=== PATIENT | male | born 1935 | race Caucasian/White ===

== ENCOUNTER 2022-12-21 01:12 | Inpatient (IN) ==
[2022-12-21 01:38] LABS: Hematocrit 31 % (42-52); Hemoglobin 10.1 g/dL (14.0-18.0); Mean Corpuscular HGB Conc 33 g/dL (31-36); Mean Corpuscular Hemoglobin 31 pg (27-31); Mean Corpuscular Volume 95 fL (80-94); Mean Platelet Volume 7.8 fL (7.4-10.4); Platelet Count 126 10^3/uL (150-450); Red Blood Count 3.24 10^6 /uL (4.18-5.48); Red Cell Distribution Width 17 % (10-15); White Blood Count 46.3 10^3/uL (3.5-10.8)
[2022-12-21 01:56] LABS: INR 1.24 (0.88-1.18)
[2022-12-21 02:28] LABS: Albumin 4.2 g/dL (3.2-5.2); Albumin/Globulin Ratio 2.3 (1-3); Calcium 9.2 mg/dL (8.6-10.3); Creatinine, Serum 1.19 mg/dL (0.67-1.17); Globulin 1.8 g/dL (2-4); Potassium 3.9 mmol/L (3.5-5.0); Total Bilirubin 0.9 mg/dL (0.2-1.0); eGFR CKD-EPI 60.2 (>60)
[2022-12-21] MEDS ORDERED: NS 0.9% 1000 ml BAG 1,000 ML IV ONE ×2 (02:30→06:46)
[2022-12-21 02:45] LABS: ABS Basophils 0.2 10^3/ul (0-0.2); ABS Eosinophils 0.2 10^3/ul (0-0.6); ABS Lymphocytes 0.2 10^3/ul (1.0-4.8); ABS Monocytes 1.1 10^3/ul (0-0.8); ABS Neutrophils 44.6 10^3/ul (1.5-7.7); Eosinophil % 0.5 %; Lymphocyte % 0.3 %
[2022-12-21 03:18] LABS: Urine Appearance Clear; Urine Bilirubin Negative (Negative); Urine Blood Negative (Negative); Urine Color Yellow; Urine Glucose Negative (Negative); Urine Ketones Negative (Negative); Urine Nitrite Negative (Negative); Urine Protein 1+(30 mg/dL) (Negative); Urine Specific Gravity 1.008 (1.002-1.030); Urine Urobilinogen Negative (Negative)
[2022-12-21 03:23] LABS: Urine Bacteria Absent (Absent); Urine Red Blood Cell Trace(0-2/hpf) (Absent); Urine White Blood Cell Trace(0-5/hpf) (Absent)
[2022-12-21 03:41] LABS: High Sensitivity Troponin 1 Hr 23 pg/mL (<20)
[2022-12-21] MEDS ORDERED: Lactated Ringers 1000 ml BAG 1,000 ML IV SCH (09:00)
[2022-12-21 09:52] LABS: Magnesium 1.7 mg/dL (1.9-2.7)
[2022-12-21 10:05] LABS: TSH Ultra Thyroid Stim Horm 7.25 mcIU/mL (0.34-5.60)
[2022-12-21 11:01] LABS: Hematocrit 27 % (42-52); Hemoglobin 9.4 g/dL (14.0-18.0); Mean Corpuscular HGB Conc 35 g/dL (31-36); Mean Corpuscular Hemoglobin 33 pg (27-31); Mean Corpuscular Volume 96 fL (80-94); Mean Platelet Volume 7.8 fL (7.4-10.4); Platelet Count 111 10^3/uL (150-450); Red Blood Count 2.85 10^6 /uL (4.18-5.48); Red Cell Distribution Width 16 % (10-15); White Blood Count 49.1 10^3/uL (3.5-10.8)
[2022-12-21 11:02] LABS: ABS Basophils 0.2 10^3/ul (0-0.2); ABS Eosinophils 0.1 10^3/ul (0-0.6); ABS Lymphocytes 0.2 10^3/ul (1.0-4.8); ABS Monocytes 1.5 10^3/ul (0-0.8); ABS Neutrophils 47.3 10^3/ul (1.5-7.7); Eosinophil % 0.1 %; Lymphocyte % 0.3 %
[2022-12-21] MEDS ORDERED: Magnesium Sulfate IV 1GM/100ML 1 GM/100 ML BAG IV ONE (15:14)
[2022-12-21] MEDS: Enoxaparin 40 MG/0.4 ML SYR SUBCUT SCH (18:52)
[2022-12-22 06:40] LABS: Hematocrit 26 % (42-52); Hemoglobin 8.9 g/dL (14.0-18.0); Mean Corpuscular HGB Conc 34 g/dL (31-36); Mean Corpuscular Hemoglobin 32 pg (27-31); Mean Corpuscular Volume 96 fL (80-94); Mean Platelet Volume 7.7 fL (7.4-10.4); Platelet Count 111 10^3/uL (150-450); Red Blood Count 2.76 10^6 /uL (4.18-5.48); Red Cell Distribution Width 16 % (10-15); White Blood Count 50.3 10^3/uL (3.5-10.8)
[2022-12-22 07:29] LABS: Calcium 8.1 mg/dL (8.6-10.3); Creatinine, Serum 1.11 mg/dL (0.67-1.17); Magnesium 1.8 mg/dL (1.9-2.7); Potassium 3.8 mmol/L (3.5-5.0); eGFR CKD-EPI 65.5 (>60)
[2022-12-22] MEDS ORDERED: Magnesium Sulfate IV 1GM/100ML 1 GM/100 ML BAG IV ONE (08:29)
[2022-12-22 09:09] LABS: RBC Morphology Normal (Normal)
[2022-12-22 09:10] LABS: ABS Basophils 0.1 10^3/ul (0-0.2); ABS Eosinophils 0.2 10^3/ul (0-0.6); ABS Lymphocytes 0.1 10^3/ul (1.0-4.8); ABS Neutrophils 47.8 10^3/ul (1.5-7.7); Eosinophil % 0.4 %; Lymphocyte % 0.2 %
[2022-12-22] MEDS: Enoxaparin 40 MG/0.4 ML SYR SUBCUT SCH (09:31)
[2022-12-22] MEDS: Polyethylene Glycol 3350 17 GM PACKET PO PRN (15:11)
[2022-12-22 20:19] LABS: High Sensitivity Troponin 1 Hr 96 pg/mL (<20)
[2022-12-22] MEDS ORDERED: Famotidine IV 10 MG/ML 2 ml VIAL (20 mg) IV SLOW PU ONE (20:52)
[2022-12-22] MEDS ORDERED: Al Hydrox/Mg Hydrox/Simet LIQ 30 ML UDC PO ONE (20:52)
[2022-12-22] MEDS: Nitroglycerin 0.1 mg/hr PATCH (2.5 mg) TRANSDERM SCH (21:56)
[2022-12-23 06:00] LABS: Hematocrit 27 % (42-52); Hemoglobin 8.8 g/dL (14.0-18.0); Mean Corpuscular HGB Conc 32 g/dL (31-36); Mean Corpuscular Hemoglobin 31 pg (27-31); Mean Corpuscular Volume 95 fL (80-94); Mean Platelet Volume 6.9 fL (7.4-10.4); Platelet Count 129 10^3/uL (150-450); Red Blood Count 2.89 10^6 /uL (4.18-5.48); Red Cell Distribution Width 16 % (10-15); White Blood Count 45.9 10^3/uL (3.5-10.8)
[2022-12-23 06:20] LABS: ABS Basophils 0.1 10^3/ul (0-0.2); ABS Eosinophils 0.3 10^3/ul (0-0.6); ABS Lymphocytes 0.1 10^3/ul (1.0-4.8); ABS Monocytes 2.1 10^3/ul (0-0.8); ABS Neutrophils 43.3 10^3/ul (1.5-7.7); Anisocytosis 1+; Eosinophil % 0.6 %; Lymphocyte % 0.3 %
[2022-12-23 06:21] LABS: Toxic Granulation 1+
[2022-12-23 06:22] LABS: Dohle Bodies Present
[2022-12-23 06:55] LABS: Calcium 8.4 mg/dL (8.6-10.3); Creatinine, Serum 1.13 mg/dL (0.67-1.17); Magnesium 1.9 mg/dL (1.9-2.7); Potassium 3.9 mmol/L (3.5-5.0); eGFR CKD-EPI 63.7 (>60)
[2022-12-23] MEDS ORDERED: Magnesium Sulfate IV 1GM/100ML 1 GM/100 ML BAG IV ONE (07:32)
[2022-12-23] MEDS: Enoxaparin 40 MG/0.4 ML SYR SUBCUT SCH (09:04)
[2022-12-23] MEDS: Polyethylene Glycol 3350 17 GM PACKET PO PRN (09:04)
[2022-12-23] MEDS: Nitroglycerin 0.1 mg/hr PATCH (2.5 mg) TRANSDERM SCH (22:11)
[2022-12-24 06:44] LABS: Hematocrit 28 % (42-52); Hemoglobin 9.6 g/dL (14.0-18.0); Mean Corpuscular HGB Conc 34 g/dL (31-36); Mean Corpuscular Hemoglobin 33 pg (27-31); Mean Corpuscular Volume 96 fL (80-94); Mean Platelet Volume 7.2 fL (7.4-10.4); Platelet Count 127 10^3/uL (150-450); Red Blood Count 2.95 10^6 /uL (4.18-5.48); Red Cell Distribution Width 16 % (10-15); White Blood Count 28.4 10^3/uL (3.5-10.8)
[2022-12-24 06:55] LABS: ABS Basophils 0.2 10^3/ul (0-0.2); ABS Eosinophils 0.2 10^3/ul (0-0.6); ABS Lymphocytes 0.1 10^3/ul (1.0-4.8); ABS Monocytes 1.9 10^3/ul (0-0.8); Eosinophil % 0.8 %; Lymphocyte % 0.3 %
[2022-12-24 07:40] LABS: Calcium 8.6 mg/dL (8.6-10.3); Creatinine, Serum 1.27 mg/dL (0.67-1.17); Magnesium 2.1 mg/dL (1.9-2.7); Potassium 3.9 mmol/L (3.5-5.0); eGFR CKD-EPI 55.4 (>60)
[2022-12-24] MEDS ORDERED: Potassium Chlor 20 meq TAB.ER PO ONE (08:43)
[2022-12-24] MEDS ORDERED: Aminophylline 25 MG/ML VIAL ONE (10:59)
[2022-12-24] MEDS ORDERED: Regadenoson 0.4 MG/5 ML SYRINGE ONE (10:59)
[2022-12-24 14:07] VITALS: BP 140/66
[2022-12-24] MEDS: Enoxaparin 40 MG/0.4 ML SYR SUBCUT SCH (15:01)
== END 2022-12-24 16:42 | disposition home or self-care (01) | DRG 281 ==
LOC: EDHOLD 01:12 → ED 01:12 → EDHOLD 12:55 → MEDTELE 14:15
PROVIDERS: ADMIT Internal Medicine; ATTEND Internal Medicine